=== PATIENT | female | born 1985 | race African-American/Black ===

== ENCOUNTER 2016-09-22 23:02 | Emergency (ER) | payer MEDICAID | END 2016-09-23 01:10 | disposition left against medical advice (07) | LOC: ER 23:02 | DX: M79.606 Pain in leg, unspecified (principal); M79.673 Pain in unspecified foot; Z53.21 Procedure and treatment not carried out due to patient leaving prior to being seen by health care provider ==

== ENCOUNTER 2016-09-24 03:57 | Emergency (ER) | payer MEDICAID ==
[~2016-09-24] VITALS: Ht 165.1 cm; Wt 107.0 kg
[2016-09-24 06:37] VITALS: BP 124/77
== END 2016-09-24 07:25 | disposition home or self-care (01) ==
LOC: ER 03:57
DX: M79.672 Pain in left foot (principal); F31.9 Bipolar disorder, unspecified
CPT/HCPCS: 99282; Z7610